=== PATIENT | female | born 1955 | race Two or more races ===

== ENCOUNTER 2017-05-31 09:29 | Day surgery (SDC) | payer OTHER ==
[~2017-05-31] VITALS: Ht 162.6 cm; Wt 90.7 kg
[2017-05-31] MEDS ORDERED: DEXTROSE 50% WATER 50ML SYRINGE IV NR (10:15)
[2017-05-31] MEDS ORDERED: DEXTROSE 50% WATER 50ML SYRINGE IV ONE (10:21)
[2017-05-31] MEDS ORDERED: FLUO-124 PO (10:52)
[2017-05-31] MEDS ORDERED: GLIP10TA10 PO (10:52)
[2017-05-31] MEDS ORDERED: LISI1TAB9 PO (10:52)
[2017-05-31] MEDS ORDERED: PIOG15TA6 PO (10:52)
[2017-05-31] MEDS ORDERED: METF850T2 PO (10:52)
[2017-05-31] MEDS ORDERED: BACL-141 PO (10:52)
[2017-05-31] MEDS ORDERED: BUPR100T6 PO (10:52)
[2017-05-31] MEDS ORDERED: ASPI-1159 PO (10:52)
[2017-05-31] MEDS ORDERED: PRAV80TA21 PO (10:52)
[2017-05-31] MEDS ORDERED: SITA50TA3 PO (10:52)
[2017-05-31] MEDS ORDERED: ESTR1TAB95 PO (10:52)
[2017-05-31] MEDS ORDERED: IBUP-1509 PO (10:52)
[2017-05-31] MEDS ORDERED: MIDAZOLAM HCL 2 MG/2 ML VIAL ONE (12:09)
[2017-05-31] MEDS ORDERED: LIDOCAINE HCL 1% 20ML VIAL (Pyxis) INJ ONE (12:10)
[2017-05-31] MEDS ORDERED: FENTANYL CITRATE/PF 50MCG/ML 2ML VIAL ONE (12:10)
[2017-05-31] MEDS ORDERED: IOHEXOL-300 100 ML BOTTLE ONE (12:10)
[2017-05-31] MEDS ORDERED: HEPARIN SODIUM 1,000 UNIT/1ML VIAL IV ONE (12:20)
== END 2017-05-31 15:40 | disposition home or self-care (01) ==
LOC: CCL 09:29
PROVIDERS: ATTEND Specialist
DX: I25.110 Atherosclerotic heart disease of native coronary artery with unstable angina pectoris (principal); I11.9 Hypertensive heart disease without heart failure; E78.5 Hyperlipidemia, unspecified; E11.9 Type 2 diabetes mellitus without complications
CPT/HCPCS: 82962; 93458; 99152; C1769; C1893; J1644; J2250; J3010; J3490; Q9967